=== PATIENT | male | born 1975 | race Caucasian/White ===

== ENCOUNTER 2025-06-09 06:23 | Day surgery (SDC) | payer OTHER, SELFPAY | END 2025-06-09 12:47 | disposition home or self-care (01) | LOC: GI 06:23 | PROVIDERS: ATTENDING PHYSICIAN Student in an Organized Health Care Education/Training Program | DX: Z12.11 Encounter for screening for malignant neoplasm of colon (principal); K62.5 Hemorrhage of anus and rectum; K57.30 Diverticulosis of large intestine without perforation or abscess without bleeding; D12.3 Benign neoplasm of transverse colon; D12.2 Benign neoplasm of ascending colon; K63.5 Polyp of colon; Z80.0 Family history of malignant neoplasm of digestive organs; Z86.0101 Personal history of adenomatous and serrated colon polyps | CPT/HCPCS: 45385; 45381; 45380; 88305 ==

== ENCOUNTER 2025-08-08 06:11 | Day surgery (SDC) | payer OTHER, SELFPAY ==
[2025-08-08 12:56] VITALS: BP 133/88
[2025-08-08 13:01] VITALS: BMI 26.3
[2025-08-08 16:22] VITALS: BP 126/86
[2025-08-08 16:30] VITALS: BP 121/87
[2025-08-08 16:45] VITALS: BP 128/95
[2025-08-08 17:00] VITALS: BP 132/90
== END 2025-08-08 17:10 | disposition home or self-care (01) ==
LOC: SDS 06:11
PROVIDERS: ATTENDING PHYSICIAN Internal Medicine Gastroenterology
DX: D12.3 Benign neoplasm of transverse colon (principal); K64.0 First degree hemorrhoids
CPT/HCPCS: 45390; 88305